=== PATIENT | male | born 1970 | race Asian ===

== ENCOUNTER 2023-06-12 08:00 | Outpatient (CLI) | payer OTHER ==
--- NOTE | 2023-06-12 11:02 | XRAY Report ---
PROCEDURE: Chest 2 View X-Ray INDICATIONS: SHORTNESS OF BREATH/FATIGUE TECHNIQUE: 2 views of the chest were acquired. COMPARISON: 12/27/2014 FINDINGS: Surgical changes and devices: None. Lungs and pleura: No pleural effusions or pneumothorax. Lungs are clear. Mediastinum: Mediastinal contours appear normal. Heart size is normal. Bones and chest wall: No suspicious bony lesions. Overlying soft tissues appear unremarkable. IMPRESSION: No acute cardiopulmonary process. Reviewed by: Jani Rosa MD on 06/12/2023 10:01 AM ANTHONY Approved by: Jani Rosa MD on 06/12/2023 10:01 AM ANTHONY Station ID: [id number]
== END 2023-06-12 23:59 | disposition home or self-care (01) ==
LOC: DI.S 08:00
PROVIDERS: ATTEND Physician Assistant
DX: R53.83 Other fatigue (principal); R06.02 Shortness of breath; Z87.09 Personal history of other diseases of the respiratory system